=== PATIENT | female | born 1980 | race Caucasian/White ===

== ENCOUNTER 2016-12-14 09:30 | Emergency (ER) | payer OTHER | END 2016-12-14 12:17 | disposition home or self-care (01) | LOC: ER1 09:30 → EDBD 09:30 → ER1 12:17 | DX: S22.039A Unspecified fracture of third thoracic vertebra, initial encounter for closed fracture (principal); Z88.2 Allergy status to sulfonamides; Z88.5 Allergy status to narcotic agent; V89.2XXA Person injured in unspecified motor-vehicle accident, traffic, initial encounter; Y92.410 Unspecified street and highway as the place of occurrence of the external cause | CPT/HCPCS: 71250; 72125; 72128; 96361; 96374; 96375; 99284 ==